=== PATIENT | female | born 1945 ===

== ENCOUNTER 2022-06-17 00:58 | Emergency (ER) | payer SELFPAY ==
[2022-06-17 01:02] VITALS: BP 166/98; PULSE 87; RESP 14; TEMP 36.6; O2SAT 100
--- NOTE | 2022-06-17 01:30 | PC.NURSE ---
Pt states her pain is better with the Tylenol she took and she no longer wishes to be seen.
== END 2022-06-17 01:30 | disposition left against medical advice (07) ==
LOC: ANHED 02:12
DX: M54.50 Low back pain, unspecified (principal)
CPT/HCPCS: 99199